=== PATIENT | female | born 1930 | race Caucasian/White ===

== ENCOUNTER → 2017-12-24 | Outpatient (REF) | payer MEDICARE, OTHER ==
[2016-05-24 16:26] VITALS: BMI 18.1
[~2017-12-24] MED LIST: ACET-2007 PO; CALC-649 PO; CYCL1DRO6 OP; DOCU-416 PO; DONE5TAB74 PO; FAMO-67 PO; FENT-23 TD; FENT1PAT40 TD; HYDR-385 PO; HYDR12.561 PO; LACT1CAP17 PO; MELO-205 PO; MEMA7CAP PO; METO25TA93 PO; METO50TA19 PO; ONDA4TAB97 PO; OXYB5TAB86 PO; SIME80TA6 PO; TRAM-420 PO
== END ==
LOC: ZZSENDIN 18:47
PROVIDERS: ATTEND Physician Assistant
DX: N39.0 Urinary tract infection, site not specified (principal)
CPT/HCPCS: 81001

== ENCOUNTER 2018-01-09 12:13 | Outpatient (RCR) | payer MEDICARE, OTHER ==
[2016-05-24 16:26] VITALS: Ht 138.4 cm; Wt 37.9 kg
[2017-12-25 12:40] VITALS: BP 104/58
--- NOTE | 2017-12-25 17:19 | ONCOLOGY CONSULTATION ---
EVENT DATE: December 25, 2017 REFERRING PHYSICIAN Jina Ordonez PA-C REASON FOR CONSULTATION Evaluation and management of anemia and neutropenia. HISTORY OF PRESENT ILLNESS Patient is an 87-year-old female who has history of dementia, and the patient was found to have urinary tract infection lately. Patient was found to have anemia and neutropenia by her CBC done recently. Her white count was 2.2, hemoglobin 9.7, hematocrit 29.8, MCV 98.4. Platelet was normal at 224,000. Her ANC was 1, ALT was 1.1. Patient denies any recurrent infections. PAST MEDICAL HISTORY 1. Sleep apnea with oxygen at night. 2. Diverticulosis. 3. Osteoporosis. 4. Chronic back pain. 5. Dementia. 6. History of renal cyst. PAST SURGICAL HISTORY 1. Laparoscopic cholecystectomy, February 2016. 2. Hysterectomy. 3. Surgery for small bowel obstruction with small bowel resection in May 2016. FAMILY HISTORY Brother with lung cancer. SOCIAL HISTORY Patient is a with nine children. 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 She denies any abuse of tobacco, alcohol or illicit drugs. CURRENT MEDICATIONS 1. Tramadol 50 mg one tablet every six hours p.r.n. for pain. 2. Zofran 4 mg q.6 hourly p.r.n. for nausea, vomiting. 3. Oxybutynin 5 mg half tablet twice daily. 4. Namenda XR 7 mg every other day. 5. Colace 100 mg at bedtime. 6. Metoprolol 50 mg daily. 7. Calcium carbonate/vitamin D3 (600/200 tablets) one tablet daily. 8. Meloxicam 7.5 mg twice daily. 9. Simethicone 80 mg as needed for gas. 10. Aricept 5 mg at bedtime. 11. Hydrochlorothiazide 12.5 mg once daily. ALLERGIES 1. METRONIDAZOLE. 2. SULFONAMIDES. 3. TORADOL. 3. CIPROFLOXACIN. 4. FLOXIN. 5. CODEINE SULFATE. 6. FLAVOXATE. 7. FENTANYL. REVIEW OF SYSTEMS CONSTITUTIONAL: Patient has some chills. No appetite or weight change. No fever or sweating. No recent infection. HEENT: Ears: No tinnitus or hearing problem. Nose: She has nasal discharge. No epistaxis. Throat: No sore throat or mouth ulcers. Eyes: No diplopia or visual changes. RESPIRATORY: No shortness of breath. No cough, expectoration or hemoptysis. CARDIOVASCULAR: No chest pain, orthopnea, or paroxysmal nocturnal dyspnea (PND) . No edema. No palpitations. GASTROINTESTINAL: No nausea or vomiting. She has alternating diarrhea or constipation. No change in bowel movements. No heartburn or swallowing difficulties. No abdominal pain. No jaundice. No hematemesis, melena or rectal bleeding. GENITOURINARY: She is recovering from recent urinary tract infection. No hematuria or dysuria. MUSCULOSKELETAL: She has scoliosis of the spine with arthritis and back pain. NEUROLOGICAL: No tingling or numbness in the hands or feet. No headaches or convulsions. HEMATOLOGIC/LYMPHATIC: No bleeding. She bruises easily. She is weak, tired and fatigued. No enlarged lymph nodes. SKIN: No skin rash or lumps. PSYCHIATRIC: No anxiety or depression. PHYSICAL EXAMINATION GENERAL: Looks stable. Well-developed, well-nourished, and in no acute distress. VITAL SIGNS: Blood pressure 104/58, pulse 63 per minute, respirations 16 per minute, temperature 97.6, pulse ox 90% on room air. HEENT: Head: Atraumatic. No sinus tenderness to palpation. Eyes: No icterus or conjunctivitis. Mouth and throat: No oral thrush or mucositis. NECK: Supple. No cervical or supraclavicular lymphadenopathy. LUNGS: Clear to auscultation and percussion bilaterally. HEART: Regular rate and rhythm. No gallops, murmurs, clicks or rubs. ABDOMEN: Soft and lax. No tenderness. No hepatosplenomegaly. No masses. EXTREMITIES: No cyanosis, clubbing or edema. LYMPHATICS: No peripheral lymphadenopathy. NEUROLOGICAL: Conscious, alert and oriented times three. No focal motor or sensory deficits. PSYCHIATRIC: Mood and affect appear normal. SKIN: No skin rash, bruise or purpuric eruption. ASSESSMENT 1. Anemia, normochromic, normocytic with leukopenia and neutropenia. Could be due to nutritional deficiencies like vitamin B12 and folic acid deficiency, but iron deficiency anemia could cause anemia also. Other causes could include PNH , which his rare, but bone marrow disease like myelodysplastic syndrome is high likely in her case. I am planning to check her CBC and retic count and chem panel. I am planning also to check vitamin B12 level, folic acid level, red cell folate, methylmalonic acid assay. I will check also iron studies with ferritin. I am planning to check also erythropoietin level. I am planning to check serum protein electrophoresis with immunofixation. I will check those tests, and if all come within the normal range then I am planning to proceed with bone marrow aspiration biopsy to rule out the possibility of a bone marrow disease like myelodysplastic syndrome. 2. Dementia. PLAN 1. CBC with retic count. 2. B12, folic acid levels. 3. Methylmalonic acid assay. 4. Red cell folate. 5. Chem panel. 6. Serum protein electrophoresis with immunofixation. 7. Erythropoietin level. 8. Consider bone marrow aspiration biopsy. 9. Patient to contact us for any new concerns or complaints. ALLYSON
[2017-12-26 10:48] LABS: PLATELET COUNT, AUTOMATED 237 K/uL (150-450)
[~2018-01-09] VITALS: Ht 138.4 cm; Wt 37.9 kg
[2018-01-09 12:20] VITALS: BP 115/61
--- NOTE | 2018-01-10 19:37 | ONCOLOGY FOLLOW UP NOTE ---
EVENT DATE: January 09, 2018 DIAGNOSES 1. Normocytic/normochromic anemia with leukopenia. 2. Dementia. CHIEF COMPLAINT Patient is here today for followup of her anemia. HISTORY OF PRESENT ILLNESS Patient is an 87-year-old female who has history of dementia, and the patient was found to have urinary tract infection lately. Patient was found to have anemia and neutropenia by her CBC done recently. Her white count was 2.2, hemoglobin 9.7, hematocrit 29.8, MCV 98.4. Platelet was normal at 224,000. Her ANC was 1, ALT was 1.1. Patient denies any recurrent infections. Repeat CBC showed white count 2.9, hemoglobin 9.5, hematocrit 27.8, platelets 237,000. ANC is 1.3. Chem panel is normal, except potassium 3.1. Serum iron is 120, TIBC is 255, iron saturation 47.1%, ferritin 196, EPO level is 52, red cell folate is 504, vitamin B12 level is 308, serum folate is 9, methylmalonic acid is less than 0.10, serum protein electrophoresis with no monoclonal protein. PAST MEDICAL HISTORY 1. Sleep apnea with oxygen at night. 2. Diverticulosis. 3. Osteoporosis. 4. Chronic back pain. 5. Dementia. 6. History of renal cyst. PAST SURGICAL HISTORY 1. Laparoscopic cholecystectomy, February 2016. 2. Hysterectomy. 3. Surgery for small bowel obstruction with small bowel resection in May 2016. FAMILY HISTORY Brother with lung cancer. SOCIAL HISTORY Patient is a with nine children. 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 She denies any abuse of tobacco, alcohol or illicit drugs. CURRENT MEDICATIONS 1. Tramadol 50 mg one tablet every six hours p.r.n. for pain. 2. Zofran 4 mg q.6 hourly p.r.n. for nausea, vomiting. 3. Oxybutynin 5 mg half tablet twice daily. 4. Namenda XR 7 mg every other day. 5. Colace 100 mg at bedtime. 6. Metoprolol 50 mg daily. 7. Calcium carbonate/vitamin D3 (600/200 tablets) one tablet daily. 8. Meloxicam 7.5 mg twice daily. 9. Simethicone 80 mg as needed for gas. 10. Aricept 5 mg at bedtime. 11. Hydrochlorothiazide 12.5 mg once daily. ALLERGIES 1. METRONIDAZOLE. 2. SULFONAMIDES. 3. TORADOL. 3. CIPROFLOXACIN. 4. FLOXIN. 5. CODEINE SULFATE. 6. FLAVOXATE. 7. FENTANYL. REVIEW OF SYSTEMS CONSTITUTIONAL: Patient has some chills. No appetite or weight change. No fever or sweating. No recent infection. HEENT: Ears: No tinnitus or hearing problem. Nose: She has nasal discharge. No epistaxis. Throat: No sore throat or mouth ulcers. Eyes: No diplopia or visual changes. RESPIRATORY: No shortness of breath. No cough, expectoration or hemoptysis. CARDIOVASCULAR: No chest pain, orthopnea, or paroxysmal nocturnal dyspnea (PND) . No edema. No palpitations. GASTROINTESTINAL: No nausea or vomiting. She has alternating diarrhea or constipation. No change in bowel movements. No heartburn or swallowing difficulties. No abdominal pain. No jaundice. No hematemesis, melena or rectal bleeding. GENITOURINARY: She is recovering from recent urinary tract infection. No hematuria or dysuria. MUSCULOSKELETAL: She has scoliosis of the spine with arthritis and back pain. NEUROLOGICAL: No tingling or numbness in the hands or feet. No headaches or convulsions. HEMATOLOGIC/LYMPHATIC: No bleeding. She bruises easily. She is weak, tired and fatigued. No enlarged lymph nodes. SKIN: The patient has a discharging wound of the right ear, which has not healed for the last three months. No skin rash or lumps. PSYCHIATRIC: No anxiety or depression. PHYSICAL EXAMINATION GENERAL: Looks stable. Well-developed, well-nourished, and in no acute distress. VITAL SIGNS: Blood pressure 115/61, pulse 54 per minute, respirations 16 per minute, temperature 97.3, pulse ox 93% on room air. HEENT: Head: Atraumatic. No sinus tenderness to palpation. Eyes: No icterus or conjunctivitis. Mouth and throat: No oral thrush or mucositis. NECK: Supple. No cervical or supraclavicular lymphadenopathy. LUNGS: Clear to auscultation and percussion bilaterally. HEART: Regular rate and rhythm. No gallops, murmurs, clicks or rubs. ABDOMEN: Soft and lax. No tenderness. No hepatosplenomegaly. No masses. EXTREMITIES: No cyanosis, clubbing or edema. LYMPHATICS: No peripheral lymphadenopathy. NEUROLOGICAL: The patient has dementia. No focal motor or sensory deficits. PSYCHIATRIC: Mood and affect appear normal. SKIN: No skin rash, bruise or purpuric eruption. There is a hole with a wound associated with the middle of the right ear lobule. DIAGNOSTIC DATA CBC showed white count 2.9, hemoglobin 9.5, hematocrit 27.8, platelets 237,000. ANC 1.3. Chem panel normal except potassium 3.1. Serum iron 120, TIBC 255, iron saturation 47.1%, ferritin 196, erythropoietin level 52, red cell folate is 504, folate is 9, B12 308, methylmalonic acid is less than 0.10. Serum protein immunoelectrophoresis with no monoclonal protein. ASSESSMENT 1. Anemia, normochromic, normocytic with leukopenia and neutropenia. There is no evidence of nutritional deficiencies. Her B12, folate, red cell folate, methylmalonic acid, iron studies with ferritin all came within the normal range. Erythropoietin level was 52, and serum protein immunoelectrophoresis was negative for monoclonal protein. I talked to the family, as the patient has dementia, about further evaluation which would include bone marrow aspiration biopsy, but given her general condition is really poor with dementia , the family decided not to proceed for further workup. I had a long discussion with them today regarding like inclusion in hospice care and I am planning to let the school social worker talk to them about that. 2. Unhealed wound of the right ear, present for the last three months. I am planning to refer the patient to the [facility]. 3. Dementia. PLAN 1. computer networker for possible inclusion in hospice care. 2. If the patient will not be put in hospice care I will check her CBC every six weeks, and I will proceed with two units of packed RBCs if the hemoglobin is less than 8 g/dL. 3. [facility] for the nonhealing wound of the right ear. 4. Family to contact us for any concerns or complaints. ALLYSON
== END 2018-02-19 ==
LOC: ONC 12:13
PROVIDERS: ATTEND Internal Medicine Hematology
DX: D64.9 Anemia, unspecified (principal); D72.819 Decreased white blood cell count, unspecified; F03.90 Unspecified dementia, unspecified severity, without behavioral disturbance, psychotic disturbance, mood disturbance, and anxiety; Z79.899 Other long term (current) drug therapy; R53.1 Weakness; R53.83 Other fatigue
CPT/HCPCS: 82607; 82668; 82728; 82746; 82747; 83540; 83550; 83921; 85025; 85045; 86334; G0463; 82040; 82247; 82310; 82374; 82435; 82565; 82947; 84075; 84132; 84155; 84295; 84450; 84460; 84520; 99202; 99212